=== PATIENT | female | born 1930 | race Caucasian/White ===

== ENCOUNTER 2021-02-15 06:36 | Day surgery (SDC) | payer MEDICARE, OTHER ==
[2021-02-15] MEDS ORDERED: Propofol 200 MG/20 ML SDV ONE (07:08)
[2021-02-15] MEDS ORDERED: fentaNYL 100 MCG/2 ML SDV ONE (07:09)
[2021-02-15] MEDS ORDERED: Dextrose 5%-Lactated Ringers 1,000 ML IV SCH (07:15)
--- NOTE | 2021-02-27 16:37 | OR ---
DATE OF PROCEDURE: 02/15/2021 SURGEON: Luis Eduardo Felton MD PREOPERATIVE DIAGNOSES: Worsening gastroesophageal reflux disease with associated shortness of breath with known extremely large paraesophageal diaphragmatic hernia. POSTOPERATIVE DIAGNOSES: 1. Very large paraesophageal diaphragmatic hernia. 2. Mild antral gastritis. OPERATIVE PROCEDURE: Upper gastrointestinal endoscopy with biopsies of antrum for CLOtest. ANESTHESIA: IV sedation. INDICATION FOR PROCEDURE: This is an 89-year-old female presenting with very large paraesophageal diaphragmatic hernia that was seen on previous radiologic imaging. She has some significant shortness of breath associated with this and also has some worsening reflux symptoms. The plan is to proceed with upper endoscopy for diagnostic purposes. Potential risks of the procedure including bleeding and perforation were discussed, and the patient wishes to proceed. As discussed with the patient and daughter at the previous clinic appointment, should there not be anything worrisome in terms of findings suggestive of possible malignancy, then we could proceed with repair of the diaphragmatic hernia, most likely laparoscopically the next day. This would entail placement of gastrostomy tube which would be approximately for about a month postoperatively. DETAILS OF PROCEDURE: The patient was taken to the operating room and placed in a left lateral decubitus position. IV sedation was administered, after which the upper GI endoscope was passed orally through the length of the esophagus and into the stomach with retroflexion view of the fundus, and through the pyloric channel into the proximal duodenum. Findings included as expected very large paraesophageal diaphragmatic hernia. This was associated with some small amount of redness in the laryngopharyngeal area. The esophageal body and upper esophageal sphincter were otherwise unremarkable. It would appear that but about 5 cm of the antrum of the stomach was above the level of the diaphragm which was causing a tight angulation of the distal stomach and pyloric sphincter. We were able to traverse the pyloric sphincter and the visualized portions of the duodenum were unremarkable. At this point, biopsies were obtained from the antrum and sent for CLOtest for H pylori. Minimal bleeding from the biopsy site was seen and the procedure then concluded. There were no worrisome findings in terms of a significant upward extension of the columnar mucosa above the upper gastric folds, and given this, I think we could proceed with the above-mentioned repair of paraesophageal diaphragmatic hernia with gastrostomy tube placement tomorrow after the patient was recovered from the anesthetic. Further discussion was held with the patient and daughter reconfirming the pros and cons of the surgical intervention. Potential risks and such were then reviewed earlier in the clinic, and they wished to proceed, and the surgery will be scheduled for tomorrow. Luis Eduardo Felton MD /[id number]
== END 2021-02-15 10:55 | disposition home or self-care (01) ==
LOC: JP.SDS 06:36
PROVIDERS: ATTEND Surgery
DX: K29.70 Gastritis, unspecified, without bleeding (principal); K21.9 Gastro-esophageal reflux disease without esophagitis; K44.9 Diaphragmatic hernia without obstruction or gangrene; E66.9 Obesity, unspecified; Z68.29 Body mass index [BMI] 29.0-29.9, adult
CPT/HCPCS: 36415; 43239; 80053; 83735; 83880; 84100; 84443; 85025; 86850; 86900; 86901; 87081; J2704; J3010; J7121

== ENCOUNTER 2021-02-16 08:02 | Inpatient (IN) | payer MEDICARE ==
[~2021-02-16 08:02] MED LIST: Acetaminophen 500 MG Tab PO ONE; Bupivacaine 0.5%/EPINEPHrine 1:200,000 50 ML MDV ONE
[2021-02-16] MEDS ORDERED: Glycopyrrolate 0.2 MG/ML 5 ML MDV ONE (08:17)
[2021-02-16] MEDS ORDERED: Propofol 200 MG/20 ML SDV ONE (08:17)
[2021-02-16] MEDS ORDERED: Succinylcholine 200 MG/10 ML MDV ONE (08:17)
[2021-02-16] MEDS ORDERED: Ondansetron 4 MG/2 ML SDV ONE (08:17)
[2021-02-16] MEDS ORDERED: Dexamethasone 4 MG/ML SDV ONE (08:17)
[2021-02-16] MEDS ORDERED: Neostigmine Methylsulfate 1 MG/ML 5 ML Syringe ONE (08:17)
[2021-02-16] MEDS ORDERED: Rocuronium 50 MG/5 ML Vial ONE (08:17)
[2021-02-16] MEDS ORDERED: fentaNYL 250 MCG/5 ML SDV ONE ×2 (08:18→11:01)
[2021-02-16] MEDS ORDERED: Dextrose 5%-Lactated Ringers 1,000 ML IV SCH (08:30)
[2021-02-16] MEDS ORDERED: Meropenem 500 MG in Sodium Chloride 0.9% 50 ML IV ONE (09:00)
[2021-02-16] MEDS ORDERED: Levofloxacin/Dextrose 5%-Water 500 MG in Premix Bag 1 BAG IV ONE (09:30)
[2021-02-16] MEDS ORDERED: Ropivacaine 38 ML, dexAMETHasone 8 MG, EPINEPHrine 0.4 MG, Sodium Chloride 0.9% 39.6 ML NERVRT SCH ×4 (09:45)
[2021-02-16] MEDS ORDERED: Meropenem 500 MG SDV ONE (10:48)
[2021-02-16] MEDS ORDERED: Lactated Ringers 1,000 ML ONE (10:59)
[2021-02-16] MEDS ORDERED: Cyclobenzaprine 10 MG Tab PO PRN (14:29)
[2021-02-16] MEDS ORDERED: hydrOXYzine HCL 100 MG/2 ML SDV IM PRN (15:00)
[2021-02-16] MEDS ORDERED: HYDROmorphone 1 MG/ML Syringe IV PRN (15:00)
[2021-02-16] MEDS ORDERED: diphenhydrAMINE 50 MG/ML SDV IVPUSH PRN (15:00)
[2021-02-16] MEDS ORDERED: traMADol 50 MG Tab PO PRN (15:00)
[2021-02-16] MEDS ORDERED: Metoclopramide 10 MG/2 ML SDV IVPUSH PRN (15:00)
[2021-02-16] MEDS ORDERED: Labetalol 20 MG/4 ML Syringe IVPUSH PRN (15:00)
[2021-02-16] MEDS ORDERED: HYDROmorphone 0.5 MG/0.5 ML Syringe IVPUSH PRN (15:00)
[2021-02-16] MEDS ORDERED: Albuterol/Ipratropium 3.0-0.5 MG/3 ML Neb Soln INH PRN (15:00)
[2021-02-16] MEDS ORDERED: Acetaminophen 500 MG Tab PO PRN (15:00)
[2021-02-16] MEDS ORDERED: Ondansetron 4 MG/2 ML SDV IVPUSH PRN (15:00)
[2021-02-16] MEDS ORDERED: oxyCODONE 5 MG Tab PO PRN (15:00)
[2021-02-16] MEDS ORDERED: MVI, Adult with Vitamin K 10 ML, Thiamine 200 MG, Zinc/Copper/Manganese/Selenium 1 ML i... IV SCH ×4 (16:00)
[2021-02-16] MEDS ORDERED: Pantoprazole 40 MG Vial IVPUSH SCH (16:00)
[2021-02-16] MEDS: Acetaminophen 325 MG Tab PO SCH (16:22)
[2021-02-16] MEDS: Meropenem 500 MG in Sodium Chloride 0.9% 50 ML IV SCH (17:29)
[2021-02-16] MEDS: Levothyroxine 50 MCG Tab PO SCH (20:49)
[2021-02-16] MEDS: Loratadine 10 MG Tab PO SCH (20:49)
[2021-02-17] MEDS: Dextrose 5%-Lactated Ringers 1,000 ML IV SCH ×2 (00:15→07:26)
[2021-02-17] MEDS: Acetaminophen 325 MG Tab PO SCH ×4 (01:00→23:04)
[2021-02-17] MEDS: Meropenem 500 MG in Sodium Chloride 0.9% 50 ML IV SCH ×2 (01:02→09:09)
[2021-02-17] MEDS ORDERED: Iopamidol 612 MG/ML 50 ML SDV PO PRN (03:24)
[2021-02-17] MEDS ORDERED: Levothyroxine 50 MCG Tab PO SCH (07:30)
[2021-02-17] MEDS ORDERED: Dextrose 5%-Lactated Ringers 1,000 ML IV SCH (08:00)
[2021-02-17] MEDS ORDERED: Loratadine 10 MG Tab PO SCH (09:00)
[2021-02-17] MEDS: Magnesium Sulfate/Water 2 GM/50 ML BAG IV SCH ×3 (09:09→20:44)
[2021-02-17] MEDS: Clopidogrel 75 MG Tab PO SCH (09:11)
[2021-02-17] MEDS: FLUOXETINE 10 MG PO SCH (14:18)
[2021-02-17] MEDS ORDERED: MVI, Adult with Vitamin K 10 ML, Thiamine 200 MG, Zinc/Copper/Manganese/Selenium 1 ML i... IV SCH ×4 (16:00)
[2021-02-17] MEDS: Pantoprazole 40 MG Delayed-Release Granules 1 Packet PO SCH (16:03)
[2021-02-17] MEDS: Bisacodyl 5 MG Tab PO SCH (20:45)
[2021-02-17] MEDS: Loratadine 10 MG Tab PO SCH (20:46)
[2021-02-17] MEDS: Docusate Sodium 100 MG Cap PO SCH (20:46)
[2021-02-17] MEDS: Levothyroxine 50 MCG Tab PO SCH (20:46)
[2021-02-18] MEDS: Magnesium Sulfate/Water 2 GM/50 ML BAG IV SCH ×4 (01:02→19:38)
[2021-02-18] MEDS ORDERED: Dextrose 5%-Lactated Ringers 1,000 ML IV SCH (08:30)
[2021-02-18] MEDS: Docusate Sodium 100 MG Cap PO SCH ×2 (08:32→19:59)
[2021-02-18] MEDS: Clopidogrel 75 MG Tab PO SCH (08:32)
[2021-02-18] MEDS: Acetaminophen 325 MG Tab PO SCH ×3 (08:33→23:35)
[2021-02-18] MEDS: Bisacodyl 5 MG Tab PO SCH ×2 (08:33→19:59)
[2021-02-18] MEDS ORDERED: Cyanocobalamin (Vitamin B12) 1,000 MCG/ML SDV IM ONE (09:00)
[2021-02-18] MEDS: Potassium Phosphates 15 MMOLE in Sodium Chloride 0.9% 250 ML IV SCH ×3 (10:14→14:53)
--- NOTE | 2021-02-18 14:11 | PN ---
DATE OF SERVICE: 02/17/2021 The patient has been afebrile with stable vital signs. No major problems have been noted overnight. She appeared to be fairly comfortable. The upper GI x-ray shows no major problems, although some somewhat slowly. There is some dye getting into the small bowel. At this point, we will back down the IV rate and begin a clear liquid diet. We will unclamp the G-tube for 1 hour every 6 hours and as needed. Recheck abdominal x-ray in the morning more or less to track the oral contrast. Riddle catheter will be coming out. Her BNP is 1087, may be at baseline, and we will recheck some labs in the morning including the BNP. Luis Eduardo Felton MD /[id number]
--- NOTE | 2021-02-18 14:39 | PN ---
DATE OF SERVICE: 02/18/2021 The patient has been afebrile with stable vital signs. Respiratory status appeared to be fairly good. She tolerated the clear liquid diet with 600 mL in. G-tube has been relatively scant in terms of output. Urine output has remained satisfactory. Labs show marginally low potassium and phosphate. Calcium is supplemented today. Otherwise, we will go up to a full liquid diet. We will leave the G-tube clamped unless she complains of some nausea. She is not requiring anything for pain other than Tylenol, and we will recheck some labs in the morning and maximize activity and work with pulmonary toilet. Luis Eduardo Felton MD /[id number]
--- NOTE | 2021-02-18 15:17 | PN ---
DATE OF SERVICE: 02/17/2021 The patient has been afebrile with stable vital signs. No major problems have been noted overnight. The upper GI x-ray is draining somewhat slowly, but is draining. We will begin a clear liquid diet today and drain the catheter for 1 hour every 6 hours and as needed. We will back down the IV rate. Her magnesium is somewhat low level, it will be supplemented today. We will recheck an abdominal x-ray in the morning to see if they are tracking on the p.o. contrast. Riddle catheter will be coming out. Her BNP is somewhat elevated, but that may be the baseline, we will recheck that again in the morning. Luis Eduardo Felton MD /[id number]
[2021-02-18] MEDS: Pantoprazole 40 MG Delayed-Release Granules 1 Packet PO SCH (17:13)
[2021-02-18] MEDS: Loratadine 10 MG Tab PO SCH (19:59)
[2021-02-18] MEDS: Levothyroxine 50 MCG Tab PO SCH (19:59)
[2021-02-19] MEDS: Magnesium Sulfate/Water 2 GM/50 ML BAG IV SCH (02:28)
[2021-02-19] MEDS: Bisacodyl 5 MG Tab PO SCH (08:25)
[2021-02-19] MEDS: Acetaminophen 325 MG Tab PO SCH (08:25)
[2021-02-19] MEDS: Clopidogrel 75 MG Tab PO SCH (08:25)
[2021-02-19] MEDS: Docusate Sodium 100 MG Cap PO SCH (08:25)
[2021-02-19] MEDS: FLUOXETINE 10 MG PO SCH (08:26)
--- NOTE | 2021-02-19 10:27 | CRLCR ---
HISTORY: Posterior bariatric surgery. TECHNIQUE: Upper GI. Five images acquired. No direct radiologist involvement. COMPARISON: No prior. FINDINGS: Functional Support Analyst film demonstrates a drain within the upper abdomen. Nonspecific bowel gas pattern. Degenerative changes of the spine. On subsequent images, oral contrast is seen within the esophagus and proximal through mid stomach. The stomach is incompletely distended. No contrast extravasation is seen. No opacification of the duodenum. IMPRESSION: No contrast extravasation to suggest a leak. Dictated by Jakub Santana MD @ 02/19/2021 10:25:[address] Jakub Santana @ Feb 19 2021 10:25AM
--- NOTE | 2021-02-19 15:52 | DISCH ---
ADMISSION DIAGNOSIS: Large hiatal hernia. DISCHARGE DIAGNOSES: Exploratory laparotomy with: 1. Repair of paraesophageal hernia with mesh. 2. Excision of peritoneal nodule. 3. Excision of perigastric lymph node. 4. Excision of mediastinal lipoma. 5. Repair of left parasternal hernia. 6. Placement of tube gastrostomy. POSTOPERATIVE DIAGNOSES: 1. Large paraesophageal diaphragmatic hernia. 2. Peritoneal nodule on surface of left triangular ligament. 3. Enlarged perigastric lymph node. 4. Left parasternal hernia. 5. Mid sternal lipoma. Date of procedure, 02/16/2021. Surgeon: Luis Eduardo Felton MD. HISTORY: Eva Fulton is a pleasant 89-year-old female with a large paraesophageal hernia. After preoperative evaluation and discussion of possible risks and possible complications, she wished to proceed with surgical procedure. HOSPITAL COURSE: Eva had her surgery on 02/16/2021. She had no operative complications. On postoperative day #1, her magnesium sulfate was replaced. IV was decreased to 100 mL per hour. She was started on a clear liquid diet. Gastrostomy tube was clamped and unclamped every 6 hours for 1 hour as needed for nausea. Riddle catheter was discontinued, and she had labs ordered for the morning. On 02/18/2021, her IV was decreased to 80 mL per hour, K-Phos 45 millimoles was replaced, started on a full liquid diet. Her G- tube was clamped, and labs were checked, and she was able to shower. On postoperative day 3, Eva was ready to be discharged to home. Vital signs stable. Oral intake 1680. Urine output 2024, and her ALEC drain put out 55 mL of a serosanguineous drainage. Eva received dietary instructions for a full-liquid diet, and she was able to be discharged to home on 02/19/2021 with no complications. PHYSICAL EXAMINATION: GENERAL: Eva Fulton is a pleasant 89-year-old female. Height is 5 feet 3 inches, weight is 165 pounds. VITAL SIGNS: 98, 69, 16. Blood pressure 165/82. HEENT: Negative. NECK: Supple. HEART: Regular rate and rhythm. LUNGS: Clear. ABDOMEN: Trocar incisions look good. Sutures intact. ALEC drain will be removed prior to discharge. Her gastrostomy tube is clamped, and a Urostat clamp was ordered to hold it secure. Abdominal binder has been on. EXTREMITIES: Without peripheral edema. DISPOSITION: Discharged to home. CONDITION: Stable and improving. FOLLOWUP: Appointment with Luis Eduardo Felton MD, on 02/28/2021 at 10 a.m. HOME MEDICATIONS: Oxycodone 5 mg p.o. q.6 hours p.r.n. pain, #28. She is to resume her home medications. DIET: Full liquid diet for 2 weeks until 03/02/2021. She should drink 8 to 10 glasses of water a day. ACTIVITY: No lifting greater than 10 pounds for 2 weeks. OTHER ACTIVITY: Walk 6 times daily inside your home. DRIVING: Do not drive for 1 week. SHOWER/BATHING: May shower. Keep operative site clean and dry. Wear abdominal binder for 6 weeks if tolerated. Notify provider if any fever, increased pain, nausea, or vomiting. SPECIAL INSTRUCTION: 1. Use incentive spirometer 10 times every hour while awake for 1 week. 2. Keep gastrostomy tube clamped. /[id number]
--- NOTE | 2021-02-19 17:46 | PCM.EKG ---
#1 Interpretation EKG Date: 02/16/21 Time: 08:28 Rhythm: NSR Rate (Beats/Min): 64 [place]: LAD-Left [place] Deviation (LAFB) P-Wave: Present QRS: Normal ST-T: Normal QT: Normal Comparison: NA - No Prior EKG
--- NOTE | 2021-02-20 09:21 | CRLCR ---
Indication: Post bariatric surgery Technique: Abdomen 2 views Comparison: February 17, 2021 Findings/Impression: Oral contrast is present from a recent upper GI series. The contrast appears to be in the proximal colon. No sign of contrast extravasation or other acute or significant finding. Dictated by Julian aSlguero MD @ 02/20/2021 9:20:[address] Julian Salguero @ Feb 20 2021 9:20AM
--- NOTE | 2021-02-27 12:31 | OR ---
DATE OF PROCEDURE: 02/16/2021 SURGEON: Luis Eduardo Felton MD PREOPERATIVE DIAGNOSIS: Very large paraesophageal diaphragmatic hernia. POSTOPERATIVE DIAGNOSES: 1. Very large paraesophageal diaphragmatic hernia. 2. Peritoneal nodule on the surface of left triangular ligament. 3. Large perigastric lymph node. 4. Left parasternal hernia. 5. Mediastinal lipoma. OPERATIVE PROCEDURES: Diagnostic laparoscopy with: 1. Repair of paraesophageal diaphragmatic hernia with mesh (54678). 2. Excision of peritoneal nodule over the surface of the left triangular ligament (82008). 3. Excision of large perigastric lymph node (51163). 4. Excision of mediastinal lipoma (05879). 5. Repair of left parasternal hernia (33653). 6. Placement of tube gastrostomy (96930). ANESTHESIA: General. HEATING WORKER: Meme Rucker PA-C INDICATIONS FOR PROCEDURE: Please see notes dictated previously at the clinic and yesterday's upper endoscopy operative report. Potential risks including bleeding, infection, injury to the viscera and area of problems with dysphagia or recurrent worsening reflux symptoms following the procedure, possibility of there being a significant injury to the gastrointestinal structures in the vicinity during the dissection as well as possibility of cardiopulmonary, septic, or hemorrhagic complications leading to were discussed and the patient wishes to proceed. She is aware of the standard treatment in this case includes placement of gastrostomy tube to help fix the stomach in intraabdominal location and this needs to stay in for roughly a month were likewise gone over and the patient and family present wished to proceed. DETAILS OF PROCEDURE: The patient was taken to the operating room, and after general endotracheal anesthesia was induced, a Riddle catheter was inserted and she was placed in a lithotomy position and the abdomen prepped and draped. At 15 cm inferior and 5 cm left of the xiphoid process, a transverse incision was made and the peritoneal cavity entered under direct vision with an Optiview trocar and inflated to 15 mmHg pressure of CO2. Laparoscope was reinserted. No underlying trocar insertion site injuries were seen. Bilateral transversus abdominis plane blocks were then placed and 5 additional trocars were placed across the upper mid abdomen. With the liver being retracted anteriorly, the patient was noted to have a roughly 1 cm nodular lesion on the peritoneal surface of the left triangular ligament. This was excised and sent for histologic evaluation. At this point, the stomach was grasped and pulled downward to the hernia sac beginning anteriorly along the edge of the diaphragm and extending leftward and then rightward down to the level of the now reduced esophagogastric junction was incised. This then allowed stripping of the peritoneal sac away from the mediastinal surfaces in a sequential manner and taken down to a point where the peritoneum was divided overlying the edge of the diaphragm. During the course of the dissection, a large amount of mediastinal lipomatous tissue was encountered and this was excised as well. On the right side of the esophagogastric junction, an extremely large perigastric lymph node was identified and this was excised and sent for histologic evaluation as well. At this point, the retroesophageal dissection was completed and a Louisa drain placed around the esophagogastric junction. The remaining peritoneal structures posterior to the distal esophagus were then also then dissected free from the level of the diaphragm. At this point, it showed the diaphragmatic crura to be well defined and the posterior repair of the diaphragmatic hernia was accomplished with a series of 0 Ethibond sutures reinforced with PTFE pledgets. The large defect obviously was such that it would be high risk for recurrence given this Phasix ST mesh was cut in a horseshoe-type configuration and positioned over the crural repair and along the side of the diaphragm adjacent to the esophagus and fixed in position with titanium tacking screws to the adjacent musculature. At this point, the diaphragmatic hernia repair appeared to be satisfactorily completed. The fundus was then freed up of attachments to the short gastric vessels including the highest and posterior short gastric vessels. This then allowed placement of the fundus to the retroesophageal window. A very loose wrap was placed with the attachment of the fundus on the right side of the esophagogastric junction, just slightly anterior to the level of the esophagus. This was done with 0 Ethibond sutures reinforced with PTFE pledgets. This created anterior angulation of the esophagogastric junction which should provide some barrier function in terms of reflux, but not create an overly tightened area that in this setting would likely result quite a bit in the way of postoperative dysphasia. Once this was completed, attention was then taken to the gastrostomy tube. A 16-[place] Riddle catheter was then placed through the trocar site that had been used in the left mid subcostal area. The stomach underlying that was then brought up and a small gastrotomy placed. The gastrostomy tube which had been tested at that point was placed into the gastric lumen and inflated with 10 mL of saline. The pursestring stitch around the gastrostomy tube was then placed with 2-0 Vicryl stitch. This was initially tied and then sutured up to the abdominal wall as well to help fix the stomach in position. Four additional sutures to the stomach and the anterior abdominal wall with same stitch were then accomplished. Some omentum was incorporated along the edges of the left and superior aspects of the gastrostomy fixation as well. At this point, 7-[place] Yung-Car drain was then placed through the left lateral trocar site and positioned up into the mediastinum to evacuate any fluid or air that might be present in that area and remaining trocars were then removed and the peritoneal cavity deflated. The gastrostomy tube was sutured to the skin level with a 2-0 nylon stitch and the patient was taken to the recovery room in satisfactory condition. Physician technical administrative assistant, Meme Rucker, played an essential role in assisting in this case helping to position the patient, retract structures as needed, as well as suturing and cutting sutures when indicated. Her presence improved patient safety and decreased operative time. Luis Eduardo Felton MD /[id number]
== END 2021-02-19 11:35 | disposition home or self-care (01) | DRG 328 ==
LOC: JP.SDSSCHI 08:02 → JP.SDS 08:02 → EDSTATUS 09:30 → JP.MS 13:30
PROVIDERS: ADMIT Surgery; ATTEND Surgery
PROC: 0BUT4JZ Supplement Diaphragm with Synthetic Substitute, Percutaneous Endoscopic Approach (ICD-10-PCS; principal; 2021-02-16)
PROC: 0WBC4ZZ Excision of Mediastinum, Percutaneous Endoscopic Approach (ICD-10-PCS; principal; 2021-02-16)
PROC: 0DH60UZ Insertion of Feeding Device into Stomach, Open Approach (ICD-10-PCS; principal; 2021-02-16)
PROC: 0DBW4ZZ Excision of Peritoneum, Percutaneous Endoscopic Approach (ICD-10-PCS; principal; 2021-02-16)
DX: K44.9 Diaphragmatic hernia without obstruction or gangrene (principal); D17.1 Benign lipomatous neoplasm of skin and subcutaneous tissue of trunk; Z88.0 Allergy status to penicillin; Z88.8 Allergy status to other drugs, medicaments and biological substances; Z88.1 Allergy status to other antibiotic agents; K66.8 Other specified disorders of peritoneum; K43.5 Parastomal hernia without obstruction or gangrene; R59.0 Localized enlarged lymph nodes
CPT/HCPCS: 36415; 74019; 74240; 80053; 83735; 83880; 84100; 85025; 88302; 88304; 88305; 88341; 88342; 93005; 94762; A9270-GY; C1713; C1781; C9113; J0171; J0330; J1100; J1170; J2185; J2405; J2704; J2710; J2795; J3010; J3410; J3411; J3420; J3475; J3490; J7050; J7120; J7121; Q9967